=== PATIENT | male | born 1990 | race Caucasian/White ===

== ENCOUNTER 2018-08-07 07:07 | Emergency (ER) | payer OTHER ==
[2018-08-07 07:34] VITALS: BP 147/93; BMI 34.0
[2018-08-07] MEDS ORDERED: IBUPROFEN 600 MG TABLET (FP) PO ONE ×2 (08:33→09:00)
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
[2018-08-07 10:13] VITALS: PULSE 102
== END 2018-08-07 10:13 | disposition home or self-care (01) ==
LOC: JER 07:07
DX: S63.501A Unspecified sprain of right wrist, initial encounter (principal); Y35.811A Legal intervention involving manhandling, law enforcement official injured, initial encounter; Y93.89 Activity, other specified; Y92.89 Other specified places as the place of occurrence of the external cause; Y99.0 Civilian activity done for income or pay
CPT/HCPCS: 73110-TC-RT-FY; 73130-TC-RT-FY; 99282-25

== ENCOUNTER 2018-08-27 23:59 | Emergency (ER) | payer OTHER ==
[2018-08-28 00:36] VITALS: BP 153/74; PULSE 100; TEMP 98.2; BMI 33.2
--- NOTE | 2018-08-28 01:05 | PDOC ---
History of Present Illness - General Chief Complaint: Pain Stated Complaint: [employer] INJURY Time Seen by Provider: 08/28/18 01:03 History Source: Patient Exam Limitations: No Limitations Past History - Past Medical History Allergies/Adverse Reactions: Allergies Allergy/AdvReac Type Severity Reaction Status Date / Time No Known Allergies Allergy Verified 08/07/18 07:31 Home Medications: Ambulatory Orders NK [No Known Home Medication] 08/07/18 COPD: No - Immunization History Immunization Up to Date: Yes - Suicide/Smoking/Psychosocial Hx Smoking History: Never smoked Hx Alcohol Use: No Drug/Substance Use Hx: No *Physical Exam - Vital Signs Last Vital Signs Temp Pulse Resp BP Pulse Ox 98.2 F 100 H 19 153/74 100 08/28/18 00:00 08/28/18 00:00 08/28/18 00:00 08/28/18 00:00 08/28/18 00:00 *DC/Admit/Observation/Transfer Diagnosis at time of Disposition: Fractured elbow Qualifiers: Encounter type: initial encounter Fracture type: closed Laterality: right Qualified Code(s): S42.401A - Unspecified fracture of lower end of right humerus , initial encounter for closed fracture - Discharge Dispostion Disposition: HOME Decision to Admit order: No - Referrals Referrals: Olaf Nieto MD [Staff Physician] - - Patient Instructions Printed Discharge Instructions: How to Use a Sling, DI for Elbow Fracture Additional Instructions: you were seen for your elbow pain. please follow up with orthopedics by this thursday for evaluation of your right elbow fracture. you were given a disc with the images which showed a cortical disruption consistent with a fracture. please use the sling as directed. please return to the emergency department if you have worsening pain or new concerning symptoms such as loss of feeling in your arm and fingers, discoloration of your fingers, and significant swelling in the elbow. thank you. - Post Discharge Activity
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
== END 2018-08-28 02:43 | disposition home or self-care (01) ==
LOC: JER 23:59
DX: S42.401A Unspecified fracture of lower end of right humerus, initial encounter for closed fracture (principal); W10.9XXA Fall (on) (from) unspecified stairs and steps, initial encounter; Y93.89 Activity, other specified; Y35.891A Legal intervention involving other specified means, law enforcement official injured, initial encounter; Y92.410 Unspecified street and highway as the place of occurrence of the external cause; Y99.0 Civilian activity done for income or pay
CPT/HCPCS: 73070-TC-RT-FY; 99281-25

== ENCOUNTER 2019-01-23 04:27 | Emergency (ER) | payer OTHER ==
[2019-01-23] MEDS ORDERED: IBUPROFEN 600 MG TABLET (FP) PO ONE ×2 (05:39→05:45)
[2019-01-23 05:40] VITALS: BP 128/89; PULSE 97; TEMP 98; BMI 32.5
[2019-01-23] MEDS ORDERED: METHOCARBAMOL 500 MG TABLET PO ONE (05:40)
[2019-01-23] MEDS ORDERED: METHOCARBAMOL 500 MG TABLET ONE (05:44)
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
== END 2019-01-23 06:03 | disposition home or self-care (01) ==
LOC: JER 04:27
DX: S39.82XA Other specified injuries of lower back, initial encounter (principal); Y35.811A Legal intervention involving manhandling, law enforcement official injured, initial encounter; Y93.89 Activity, other specified; Y92.89 Other specified places as the place of occurrence of the external cause; Y99.0 Civilian activity done for income or pay
CPT/HCPCS: 99281-25

== ENCOUNTER 2019-06-01 03:17 | Emergency (ER) | payer OTHER ==
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
[2019-06-01 03:46] VITALS: BP 143/88; PULSE 112; TEMP 98.3; BMI 34.0
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
== END 2019-06-01 04:37 | disposition home or self-care (01) ==
LOC: JER 03:17
DX: M25.561 Pain in right knee (principal); M25.562 Pain in left knee
CPT/HCPCS: 73110-TC-RT-FY; 73130-TC-RT-FY; 73560-TC-LT-FY; 99282-25

== ENCOUNTER 2021-12-11 14:26 | Emergency (ER) | payer OTHER ==
[2021-12-11 14:38] VITALS: BP 138/94; PULSE 95; RESP 16; TEMP 98.6; BMI 34.0
== END 2021-12-11 15:39 | disposition home or self-care (01) ==
LOC: FER 14:26
DX: S43.401A Unspecified sprain of right shoulder joint, initial encounter (principal)
CPT/HCPCS: 73030-TC-RT-FY; 99284-25

== ENCOUNTER → 2022-04-30 | Day surgery (SDC) | payer OTHER | END | disposition home or self-care (01) | LOC: JRADIR 11:23 | PROVIDERS: ATTEND Orthopaedic Surgery | PROC: BP38YZZ Magnetic Resonance Imaging (MRI) of Right Shoulder using Other Contrast (ICD-10-PCS; principal; 2022-04-30) | DX: M25.511 Pain in right shoulder (principal) | CPT/HCPCS: 23350; 73040-TC-FY; 73222-TC ==

== ENCOUNTER 2022-09-10 09:25 | Emergency (ER) | payer OTHER ==
[2022-09-10] MEDS ORDERED: IBUPROFEN 600 MG TABLET (FP) PO ONE ×2 (09:47→09:51)
[2022-09-10 09:48] VITALS: BP 137/87; PULSE 87; RESP 16; TEMP 98.6; BMI 34.0
[2022-09-10] MEDS ORDERED: DIPHTH,PERTUSS(ACELL),TET 0.5 ML DISP.SYRIN IM ONE ×2 (09:48→09:51)
== END 2022-09-10 10:17 | disposition home or self-care (01) ==
LOC: FER 09:25
PROC: 3E0234Z Introduction of Serum, Toxoid and Vaccine into Muscle, Percutaneous Approach (ICD-10-PCS; principal; 2022-09-10)
DX: S60.512A Abrasion of left hand, initial encounter (principal); M25.511 Pain in right shoulder; S49.91XA Unspecified injury of right shoulder and upper arm, initial encounter; X58.XXXA Exposure to other specified factors, initial encounter; Y99.0 Civilian activity done for income or pay
CPT/HCPCS: 90715; 99283-25

== ENCOUNTER 2022-10-06 15:24 | Emergency (ER) | payer OTHER ==
[2022-10-06 15:32] VITALS: BP 137/83; PULSE 105; RESP 16; TEMP 98.5; BMI 34.8
== END 2022-10-06 16:31 | disposition home or self-care (01) ==
LOC: FER 15:24
DX: M79.602 Pain in left arm (principal); M25.512 Pain in left shoulder; R20.0 Anesthesia of skin; S46.202A Unspecified injury of muscle, fascia and tendon of other parts of biceps, left arm, initial encounter; Y04.0XXA Assault by unarmed brawl or fight, initial encounter; Y35.811A Legal intervention involving manhandling, law enforcement official injured, initial encounter
CPT/HCPCS: 99282-25

== ENCOUNTER 2023-04-19 15:07 | Emergency (ER) | payer OTHER ==
[2023-04-19] MEDS ORDERED: DIPHTH,PERTUSS(ACELL),TET 0.5 ML DISP.SYRIN IM ONE ×2 (15:23→15:30)
[2023-04-19 15:25] VITALS: BP 131/86; PULSE 97; RESP 18; TEMP 97.8; BMI 34.0
== END 2023-04-19 15:50 | disposition home or self-care (01) ==
LOC: FER 15:07
PROC: 3E0234Z Introduction of Serum, Toxoid and Vaccine into Muscle, Percutaneous Approach (ICD-10-PCS; principal; 2023-04-19)
DX: Z77.21 Contact with and (suspected) exposure to potentially hazardous body fluids (principal); S50.811A Abrasion of right forearm, initial encounter; X58.XXXA Exposure to other specified factors, initial encounter
CPT/HCPCS: 90715; 99282-25

== ENCOUNTER 2023-05-17 14:53 | Emergency (ER) | payer OTHER ==
[2023-05-17 15:06] VITALS: BP 141/95; PULSE 101; RESP 18; TEMP 99; BMI 34.0
[2023-05-17] MEDS ORDERED: LIDOCAINE 5% TOPICAL PATCH TP ONE (15:08)
[2023-05-17] MEDS ORDERED: LIDOCAINE 5% TOPICAL PATCH ONE (15:16)
[2023-05-17] MEDS ORDERED: LIDOCAINE PATCH REMOVAL MC SCH (22:00)
== END 2023-05-17 15:55 | disposition home or self-care (01) ==
LOC: FER 14:53
DX: M25.522 Pain in left elbow (principal); M54.50 Low back pain, unspecified
CPT/HCPCS: 99283-25